=== PATIENT | male | born 1975 | race Two or more races ===

== ENCOUNTER 2023-05-18 05:33 | Emergency (ER) | payer BC ==
[2023-05-18] MEDS ORDERED: Albuterol/Ipratropium 3.0-0.5 MG/3 ML Neb Soln NEB ONE (05:44)
[2023-05-18] MEDS ORDERED: Ondansetron 4 MG Tab.DIS PO ONE (05:44)
[2023-05-18 06:28] LABS: CORONAVIRUS COVID-19 NAA NEGATIVE (NEGATIVE); INFLUENZA A NAA NEGATIVE (NEGATIVE); INFLUENZA B NAA NEGATIVE (NEGATIVE)
== END 2023-05-18 06:42 | disposition home or self-care (01) ==
LOC: MW.ED 05:33
DX: J45.20 Mild intermittent asthma, uncomplicated (principal); Z79.899 Other long term (current) drug therapy; Z20.822 Contact with and (suspected) exposure to COVID-19
CPT/HCPCS: 0240U; 87651; 99284; A9270; 99283; J7620-GY

== ENCOUNTER 2023-06-02 09:41 | Emergency (ER) | payer BC ==
[2023-06-02] MEDS ORDERED: Lidocaine 1% 5 ML VIAL INJECT ONE (10:02)
== END 2023-06-02 10:53 | disposition home or self-care (01) ==
LOC: MW.ED 09:41
DX: K12.2 Cellulitis and abscess of mouth (principal)
CPT/HCPCS: 99282; 99283; J3490